=== PATIENT | male | born 1965 | race Caucasian/White ===

== ENCOUNTER 2018-11-21 04:35 | Emergency (ER) | payer MEDICAID, OTHER ==
[~2018-11-21] VITALS: Ht 175.3 cm; Wt 76.0 kg
[~2018-11-21 04:35] MED LIST: DILANTIN; LAMICTAL; MIRT30TA PO; PHEN100C4 PO; PHEN60TA PO; PHENOBARBITAL; REMERON; THIA100T13 PO; UNK MEDS
[2018-11-21] MEDS ORDERED: LORAZEPAM 2MG/ML CPJ IV STA (05:02)
[2018-11-21 05:20] VITALS: BP 130/76
[2018-11-21 05:40] LABS: HEMATOCRIT. 41.8 % (42.0-52.0); HEMOGLOBIN. 14.2 g/dL (14.0-18.0); MEAN PLATELET VOLUME 8.5 fl (7.4-10.4); PLATELET 248 x1000/uL (130-400); RED BLOOD CELL COUNT 4.31 mill/uL (4.7-6.1); RED CELL DISTRIBUTION WIDTH 16.5 % (11.6-14.6)
[2018-11-21 05:56] LABS: CHLORIDE 110 mEq/L (98-107)
[2018-11-21 06:01] LABS: ETHANOL BLOOD < 10 mg/dL
[2018-11-21 09:10] LABS: PLATELET ESTIMATE NORMAL
== END 2018-11-21 06:13 | disposition left against medical advice (07) ==
LOC: ER 04:35
DX: F10.239 Alcohol dependence with withdrawal, unspecified (principal); Y90.0 Blood alcohol level of less than 20 mg/100 ml; F20.9 Schizophrenia, unspecified; Z79.899 Other long term (current) drug therapy; Z88.8 Allergy status to other drugs, medicaments and biological substances
CPT/HCPCS: 36415; 80320; 99283; G0480

== ENCOUNTER 2018-11-28 05:29 | Emergency (ER) | payer MEDICAID ==
[~2018-11-28] VITALS: Ht 170.2 cm; Wt 64.0 kg
[2018-11-28] MEDS ORDERED: SODIUM CHLORIDE 0.9% 1000ML BAG (SEPSIS BOLUS) IV ONE (07:00)
[2018-11-28 07:58] LABS: BASOPHILS % 1.3 % (0.0-2.0); EOSINOPHILS % 1.3 % (0.0-5.0); HEMATOCRIT. 40.7 % (42.0-52.0); HEMOGLOBIN. 13.9 g/dL (14.0-18.0); LYMPHOCYTES % 38.1 % (20.0-50.0); MEAN CORPUSCULAR HEMOGLOBIN 33.3 pg (28.0-32.0); MEAN CORPUSCULAR VOLUME 97.9 fL (80.0-94.0); MEAN PLATELET VOLUME 7.9 fl (7.4-10.4); MONOCYTES % 13.3 % (2.0-8.0); PLATELET 178 x1000/uL (130-400); RED BLOOD CELL COUNT 4.16 mill/uL (4.7-6.1); RED CELL DISTRIBUTION WIDTH 16.4 % (11.6-14.6)
[2018-11-28 08:04] LABS: CHLORIDE 108 mEq/L (98-107)
[2018-11-28 08:07] LABS: ETHANOL BLOOD 238 mg/dL
[2018-11-28 08:22] LABS: PHENOBARBITAL < 2.1 ug/mL (15.0-40.0)
[2018-11-28 11:06] LABS: CLARITY URINE CLEAR (CLEAR); COLOR URINE YELLOW (YELLOW); KETONES URINE NEGATIVE (NEGATIVE); LEUKOCYTE ESTERASE URINE NEGATIVE (NEGATIVE); NITRITE URINE NEGATIVE (NEGATIVE); OCCULT BLOOD URINE NEGATIVE (NEGATIVE); PH URINE 6.5 (4.5-8.0); PROTEIN URINE NEGATIVE (NEGATIVE); SPECIFIC GRAVITY URINE 1.015 (1.005-1.030)
[2018-11-28 11:49] LABS: *BARBITURATES SCREEN URINE NEGATIVE (NEGATIVE); *BENZODIAZEPINES SCREEN URINE PRESUMTIVE POSITIVE (NEGATIVE); *COCAINE SCREEN URINE PRESUMTIVE POSITIVE (NEGATIVE)
[2018-11-28 11:51] LABS: CANNABINOID URINE SCREEN NEGATIVE (NEGATIVE); METHADONE URINE SCREEN NEGATIVE (NEGATIVE); OPIATES URINE SCREEN NEGATIVE (NEGATIVE); PHENCYCLIDINE URINE SCREEN NEGATIVE (NEGATIVE)
[2018-11-28 11:52] LABS: *AMPHETAMINES SCREEN URINE NEGATIVE (NEGATIVE)
[2018-11-28] MEDS ORDERED: IBUPROFEN 600MG TABLET PO ONE ×2 (13:00→17:15)
[2018-11-28] MEDS ORDERED: PHENYTOIN SODIUM EXTENDED 100MG CAPSULE PO ONE (22:30)
[2018-11-29] MEDS ORDERED: PHENYTOIN SODIUM EXTENDED 100MG CAPSULE PO ONE (09:00)
[2018-11-29] MEDS ORDERED: LORAZEPAM 1MG TABLET PO ONE (10:30)
[2018-11-29] MEDS ORDERED: OLANZAPINE 10 MG/VIAL IM ONE (16:15)
[2018-11-30 08:18] VITALS: BP 130/74
== END 2018-11-30 08:53 ==
LOC: ER 05:29
DX: R41.82 Altered mental status, unspecified (principal); F14.129 Cocaine abuse with intoxication, unspecified; F10.129 Alcohol abuse with intoxication, unspecified; R56.9 Unspecified convulsions; Y90.9 Presence of alcohol in blood, level not specified
CPT/HCPCS: 36415; 70450; 71045; 80053; 80184; 80185; 80305; 80320; 81003; 83735; 83880; 84484; 85025; 93005; 96360; 96361; 96372; 99285; C1893; J3490; J7030; Z7610; 99284; G0480

== ENCOUNTER 2019-06-06 20:27 | Emergency (ER) | payer MEDICAID ==
[~2019-06-06] VITALS: Ht 177.8 cm; Wt 82.0 kg
[2019-06-06] MEDS ORDERED: LORAZEPAM 2MG/ML CPJ IM STA (20:56)
[2019-06-06] MEDS ORDERED: DIPHENHYDRAMINE 50MG/ML VIAL IM STA (20:56)
[2019-06-06] MEDS ORDERED: OLANZAPINE 10 MG/VIAL IM ONE (21:00)
[2019-06-06] MEDS ORDERED: SODIUM CHLORIDE 0.9% 1,000 ML IV ONE (21:16)
[2019-06-06 22:31] LABS: BASOPHILS % 0.5 % (0.0-2.0); EOSINOPHILS % 2.8 % (0.0-5.0); HEMATOCRIT. 44.3 % (42.0-52.0); HEMOGLOBIN. 15.2 g/dL (14.0-18.0); LYMPHOCYTES % 44.1 % (20.0-50.0); MEAN CORPUSCULAR HEMOGLOBIN 32.6 pg (28.0-32.0); MEAN CORPUSCULAR VOLUME 95.1 fL (80.0-94.0); NEUTROPHILS % 38.6 % (40.0-76.0); PLATELET 212 x1000/uL (130-400); RED BLOOD CELL COUNT 4.66 mill/uL (4.7-6.1); RED CELL DISTRIBUTION WIDTH 14.3 % (11.6-14.6)
[2019-06-06 22:36] LABS: CHLORIDE 105 mEq/L (98-107)
[2019-06-06 22:40] LABS: ETHANOL BLOOD 216 mg/dL
[2019-06-06 22:44] LABS: CLARITY URINE CLEAR (CLEAR); COLOR URINE YELLOW (YELLOW); KETONES URINE NEGATIVE (NEGATIVE); LEUKOCYTE ESTERASE URINE NEGATIVE (NEGATIVE); NITRITE URINE NEGATIVE (NEGATIVE); OCCULT BLOOD URINE NEGATIVE (NEGATIVE); PROTEIN URINE NEGATIVE (NEGATIVE); SPECIFIC GRAVITY URINE 1.022 (1.005-1.030)
[2019-06-06 22:55] LABS: PHENOBARBITAL < 2.1 ug/mL (15.0-40.0)
[2019-06-06 23:00] LABS: *AMPHETAMINES SCREEN URINE NEGATIVE (NEGATIVE); *BARBITURATES SCREEN URINE NEGATIVE (NEGATIVE); *BENZODIAZEPINES SCREEN URINE PRESUMTIVE POSITIVE (NEGATIVE); *COCAINE SCREEN URINE NEGATIVE (NEGATIVE); OPIATES URINE SCREEN NEGATIVE (NEGATIVE)
[2019-06-06 23:01] LABS: CANNABINOID URINE SCREEN NEGATIVE (NEGATIVE); METHADONE URINE SCREEN NEGATIVE (NEGATIVE); PHENCYCLIDINE URINE SCREEN NEGATIVE (NEGATIVE)
[2019-06-06] MEDS ORDERED: LORAZEPAM 2MG/ML CPJ IV ONE (23:30)
[2019-06-08] MEDS ORDERED: LORAZEPAM 1MG TABLET PO ONE (10:00)
[2019-06-08 13:40] VITALS: BP 138/79
== END 2019-06-08 14:16 | disposition home or self-care (01) ==
LOC: ER 20:27
DX: R45.850 Homicidal ideations (principal); R45.851 Suicidal ideations; Z78.1 Physical restraint status; F91.8 Other conduct disorders; F33.3 Major depressive disorder, recurrent, severe with psychotic symptoms; F10.129 Alcohol abuse with intoxication, unspecified; Y90.9 Presence of alcohol in blood, level not specified; F15.10 Other stimulant abuse, uncomplicated; G40.909 Epilepsy, unspecified, not intractable, without status epilepticus
CPT/HCPCS: 36415; 80053; 80184; 80185; 80305; 80307; 80320; 80329; 81003; 85025; 96372; 96374; 99284; J1200; J2060; J3490; J7030; G0480

== ENCOUNTER 2019-06-08 20:15 | Emergency (ER) | payer MEDICAID ==
[~2019-06-08] VITALS: Ht 177.8 cm; Wt 90.0 kg
[2019-06-08] MEDS ORDERED: LEVETIRACETAM 500MG TABLET PO ONE (21:30)
[2019-06-08] MEDS ORDERED: LORAZEPAM 1MG TABLET PO ONE (21:30)
[2019-06-08 21:49] LABS: HEMATOCRIT. 45.2 % (42.0-52.0); HEMOGLOBIN. 15.7 g/dL (14.0-18.0); MEAN CORPUSCULAR HEMOGLOBIN 33.3 pg (28.0-32.0); MEAN CORPUSCULAR VOLUME 95.7 fL (80.0-94.0); MEAN PLATELET VOLUME 7.7 fl (7.4-10.4); PLATELET 231 x1000/uL (130-400); RED BLOOD CELL COUNT 4.72 mill/uL (4.7-6.1); RED CELL DISTRIBUTION WIDTH 13.8 % (11.6-14.6)
[2019-06-08 22:00] LABS: CHLORIDE 107 mEq/L (98-107)
[2019-06-08 22:06] LABS: ETHANOL BLOOD 246 mg/dL
[2019-06-08 22:09] LABS: PLATELET ESTIMATE NORMAL
[2019-06-08 22:13] LABS: CARBAMAZEPINE < 0.5 ug/mL (4-12); PHENOBARBITAL < 2.1 ug/mL (15.0-40.0); VALPROIC ACID < 3.0 ug/mL (50-100)
[2019-06-08] MEDS ORDERED: OLANZAPINE 10 MG/VIAL IM ONE (22:15)
[2019-06-08] MEDS ORDERED: LORAZEPAM 2MG/ML CPJ IM ONE (22:15)
[2019-06-09 02:15] LABS: *AMPHETAMINES SCREEN URINE NEGATIVE (NEGATIVE); *BARBITURATES SCREEN URINE NEGATIVE (NEGATIVE); *BENZODIAZEPINES SCREEN URINE PRESUMTIVE POSITIVE (NEGATIVE); *COCAINE SCREEN URINE NEGATIVE (NEGATIVE); METHADONE URINE SCREEN NEGATIVE (NEGATIVE); OPIATES URINE SCREEN NEGATIVE (NEGATIVE)
[2019-06-09 02:16] LABS: CANNABINOID URINE SCREEN NEGATIVE (NEGATIVE); PHENCYCLIDINE URINE SCREEN NEGATIVE (NEGATIVE)
[2019-06-09 09:30] VITALS: BP 134/81
== END 2019-06-09 09:43 | disposition home or self-care (01) ==
LOC: ER 20:15
DX: G40.909 Epilepsy, unspecified, not intractable, without status epilepticus (principal); R03.0 Elevated blood-pressure reading, without diagnosis of hypertension; R53.83 Other fatigue; F10.229 Alcohol dependence with intoxication, unspecified; Y90.8 Blood alcohol level of 240 mg/100 ml or more; Z78.1 Physical restraint status; Z59.0 Homelessness; F14.10 Cocaine abuse, uncomplicated
CPT/HCPCS: 36415; 80053; 80156; 80165; 80184; 80185; 80305; 80307; 80320; 80329; 84443; 85025; 96372; 99285; J2060; J3490; G0480

== ENCOUNTER 2020-03-06 16:55 | Emergency (ER) | payer MEDICAID ==
[~2020-03-06] VITALS: Ht 175.3 cm; Wt 70.0 kg
[2020-03-06 17:11] VITALS: BP 114/79
[2020-03-06] MEDS ORDERED: LEVETIRACETAM 1000MG PREMIX 100 ML IV ONE (17:45)
[2020-03-06 19:06] LABS: BASOPHILS % 0.7 % (0.0-2.0); EOSINOPHILS % 1.7 % (0.0-5.0); HEMOGLOBIN. 16.5 g/dL (14.0-18.0); LYMPHOCYTES % 31.5 % (20.0-50.0); MEAN CORPUSCULAR HEMOGLOBIN 30.7 pg (28.0-32.0); MEAN CORPUSCULAR VOLUME 91.3 fL (80.0-94.0); MEAN PLATELET VOLUME 7.9 fl (7.4-10.4); MONOCYTES % 11.5 % (2.0-8.0); NEUTROPHILS % 54.6 % (40.0-76.0); PLATELET 209 x1000/uL (130-400); RED BLOOD CELL COUNT 5.37 mill/uL (4.7-6.1); RED CELL DISTRIBUTION WIDTH 13.3 % (11.6-14.6)
[2020-03-06 19:11] LABS: CHLORIDE 107 mEq/L (98-107)
[2020-03-06 19:18] LABS: ETHANOL BLOOD 19 mg/dL
== END 2020-03-06 19:05 | disposition left against medical advice (07) ==
LOC: ER 16:55
DX: R56.9 Unspecified convulsions (principal); F10.129 Alcohol abuse with intoxication, unspecified; Y90.0 Blood alcohol level of less than 20 mg/100 ml; Z91.14 Patient's other noncompliance with medication regimen; Z79.899 Other long term (current) drug therapy; Z88.8 Allergy status to other drugs, medicaments and biological substances
CPT/HCPCS: 36415; 80053; 80185; 80307; 80320; 85025; 99284; G0480

== ENCOUNTER → 2020-03-06 20:05 | Emergency (ER) | payer MEDICAID ==
[~2020-03-06] VITALS: Ht 182.9 cm; Wt 78.0 kg
[~2020-03-06 20:05] MED LIST changes: +MIRT-111 PO; -MIRT30TA PO; +ONDANSETRON 4MG ODT PO ONE
[2020-03-06 20:10] VITALS: BP 126/94
== END | disposition home or self-care (01) ==
LOC: ER 20:05
DX: M25.551 Pain in right hip (principal); G89.29 Other chronic pain; F10.129 Alcohol abuse with intoxication, unspecified; Y90.0 Blood alcohol level of less than 20 mg/100 ml; F32.9 Major depressive disorder, single episode, unspecified; Z79.899 Other long term (current) drug therapy; Z88.8 Allergy status to other drugs, medicaments and biological substances
CPT/HCPCS: 93005; 99283; Q0162

== ENCOUNTER 2020-04-05 14:59 | Emergency (ER) | payer MEDICAID ==
[~2020-04-05] VITALS: Ht 182.9 cm; Wt 82.0 kg
[~2020-04-05 14:59] MED LIST changes: -ONDANSETRON 4MG ODT PO ONE
[2020-04-05] MEDS ORDERED: SODIUM CHLORIDE 0.9% 1,000 ML IV ONE (15:30)
[2020-04-05 15:58] LABS: BASOPHILS % 0.7 % (0.0-2.0); EOSINOPHILS % 1.3 % (0.0-5.0); HEMATOCRIT. 42.6 % (42.0-52.0); HEMOGLOBIN. 14.6 g/dL (14.0-18.0); LYMPHOCYTES % 21.5 % (20.0-50.0); MEAN CORPUSCULAR HEMOGLOBIN 30.1 pg (28.0-32.0); MEAN CORPUSCULAR VOLUME 87.8 fL (80.0-94.0); MEAN PLATELET VOLUME 7.7 fl (7.4-10.4); MONOCYTES % 10.6 % (2.0-8.0); NEUTROPHILS % 65.9 % (40.0-76.0); PLATELET 208 x1000/uL (130-400); RED BLOOD CELL COUNT 4.86 mill/uL (4.7-6.1); RED CELL DISTRIBUTION WIDTH 13.5 % (11.6-14.6)
[2020-04-05 16:03] LABS: CHLORIDE 106 mEq/L (98-107)
[2020-04-05 16:08] LABS: ETHANOL BLOOD < 10 mg/dL
[2020-04-05 16:11] LABS: PHENOBARBITAL 2.5 ug/mL (15.0-40.0)
[2020-04-05 16:17] LABS: VALPROIC ACID < 3.0 ug/mL (50-100)
[2020-04-05 16:19] LABS: CARBAMAZEPINE < 0.5 ug/mL (4-12)
[2020-04-05 16:24] LABS: *AMPHETAMINES SCREEN URINE NEGATIVE (NEGATIVE); *BARBITURATES SCREEN URINE NEGATIVE (NEGATIVE); *BENZODIAZEPINES SCREEN URINE PRESUMTIVE POSITIVE (NEGATIVE); *COCAINE SCREEN URINE NEGATIVE (NEGATIVE); METHADONE URINE SCREEN NEGATIVE (NEGATIVE)
[2020-04-05 16:25] LABS: CANNABINOID URINE SCREEN NEGATIVE (NEGATIVE)
[2020-04-05] MEDS ORDERED: LEVETIRACETAM 500MG PREMIX 100 ML IV ONE (16:45)
[2020-04-05 16:56] LABS: OPIATES URINE SCREEN NEGATIVE (NEGATIVE); PHENCYCLIDINE URINE SCREEN NEGATIVE (NEGATIVE)
[2020-04-05] MEDS ORDERED: MORPHINE SULFATE 4 MG/ML CPJ (NOT FOR IM USE) IV ONE (18:45)
[2020-04-06 09:15] VITALS: BP 105/58
[2020-04-08] MEDS ORDERED: GABA300S PO (23:59)
[2020-04-09] MEDS ORDERED: LEVE500T19 PO (00:18)
[2020-04-09] MEDS ORDERED: TRAZ-251 PO (00:19)
[2020-04-09] MEDS ORDERED: MIRT-91 PO (00:19)
[2020-04-09] MEDS ORDERED: FOLI-43 MT (00:20)
[2020-04-09] MEDS ORDERED: [UNRECOGNIZED DRUG - CODE] PO (00:20)
[2020-04-09] MEDS ORDERED: ARIP15TA7 MT (00:21)
[2020-04-09] MEDS ORDERED: KEPP500 PO (17:03)
[2020-04-09] MEDS ORDERED: CLOP75TA15 PO (17:03)
[2020-04-09] MEDS ORDERED: LEVO50TA8 PO (17:03)
== END 2020-04-06 10:59 | disposition home or self-care (01) ==
LOC: ER 14:59
DX: R56.9 Unspecified convulsions (principal); Z85.9 Personal history of malignant neoplasm, unspecified; F32.9 Major depressive disorder, single episode, unspecified; Z79.899 Other long term (current) drug therapy; Z88.0 Allergy status to penicillin
CPT/HCPCS: 36415; 72170; 80053; 80156; 80165; 80184; 80185; 80305; 80320; 82962; 85025; 93005; 96361; 96365; 96375; 99285; J1953; J2270; J7030; Z7610; G0480

== ENCOUNTER 2021-01-26 02:50 | Emergency (ER) | payer MEDICAID ==
[~2021-01-26] VITALS: Ht 172.7 cm; Wt 69.0 kg
[~2021-01-26 02:50] MED LIST changes: +ARIP15TA14 MT; +CLOP75TA15 PO; +FOLI-43 MT; +GABA300S PO; +KEPP500 PO; +LEVE500T19 PO; +LEVO50TA8 PO; +MIRT-90 PO; +OLAN7.5T18 PO; +TRAZ-251 PO
[2021-01-26] MEDS ORDERED: SODIUM CHLORIDE 0.9% 1,000 ML IV ONE (03:00)
[2021-01-26] MEDS ORDERED: LEVETIRACETAM 1000MG PREMIX 100 ML IV ONE (04:00)
[2021-01-26] MEDS ORDERED: LEVETIRACETAM 1,000 MG in SODIUM CHLORIDE 0.9% 100 ML IV SCH (04:00)
[2021-01-26 04:08] LABS: BASOPHILS % 0.5 % (0.0-2.0); EOSINOPHILS % 1.5 % (0.0-5.0); HEMATOCRIT. 49.7 % (42.0-52.0); HEMOGLOBIN. 16.7 g/dL (14.0-18.0); LYMPHOCYTES % 29.4 % (20.0-50.0); MEAN CORPUSCULAR HEMOGLOBIN 32.1 pg (28.0-32.0); MEAN CORPUSCULAR VOLUME 95.3 fL (80.0-94.0); MEAN PLATELET VOLUME 7.8 fl (7.4-10.4); MONOCYTES % 10.8 % (2.0-8.0); NEUTROPHILS % 57.8 % (40.0-76.0); PLATELET 197 x1000/uL (130-400); RED BLOOD CELL COUNT 5.22 mill/uL (4.7-6.1); RED CELL DISTRIBUTION WIDTH 13.8 % (11.6-14.6)
[2021-01-26 04:12] LABS: CHLORIDE 108 mEq/L (98-107)
[2021-01-26 04:16] LABS: ETHANOL BLOOD 153 mg/dL
[2021-01-26] MEDS ORDERED: KEPP500 MT ×2 (05:43→12:16)
[2021-01-26] MEDS ORDERED: ONDA4TAB5 MT (05:43)
[2021-01-26 06:09] VITALS: BP 126/71
[2021-01-26 09:07] LABS: CLARITY URINE CLEAR (CLEAR); COLOR URINE YELLOW (YELLOW); KETONES URINE NEGATIVE (NEGATIVE); LEUKOCYTE ESTERASE URINE NEGATIVE (NEGATIVE); NITRITE URINE NEGATIVE (NEGATIVE); OCCULT BLOOD URINE NEGATIVE (NEGATIVE); PH URINE 5.5 (4.5-8.0); PROTEIN URINE NEGATIVE (NEGATIVE); SPECIFIC GRAVITY URINE 1.017 (1.005-1.030); UROBILINOGEN URINE 0.2 E.U./dL (0.2-1.0)
[2021-01-26 09:24] LABS: *AMPHETAMINES SCREEN URINE PRESUMTIVE POSITIVE (NEGATIVE); *BARBITURATES SCREEN URINE NEGATIVE (NEGATIVE)
[2021-01-26 09:25] LABS: *BENZODIAZEPINES SCREEN URINE PRESUMTIVE POSITIVE (NEGATIVE); *COCAINE SCREEN URINE NEGATIVE (NEGATIVE); CANNABINOID URINE SCREEN PRESUMTIVE POSITIVE (NEGATIVE); METHADONE URINE SCREEN NEGATIVE (NEGATIVE); OPIATES URINE SCREEN NEGATIVE (NEGATIVE); PHENCYCLIDINE URINE SCREEN NEGATIVE (NEGATIVE)
== END 2021-01-26 06:10 | disposition home or self-care (01) ==
LOC: ER 02:50
DX: G40.909 Epilepsy, unspecified, not intractable, without status epilepticus (principal); Z91.14 Patient's other noncompliance with medication regimen; R94.31 Abnormal electrocardiogram [ECG] [EKG]
CPT/HCPCS: 36415; 80053; 80305; 80320; 81003; 85025; 93005; 96365; 99284; J1953; J7030; J7050; G0480

== ENCOUNTER 2021-01-26 06:59 | Emergency (ER) | payer MEDICAID ==
[~2021-01-26] VITALS: Ht 172.7 cm; Wt 69.0 kg
[~2021-01-26 06:59] MED LIST changes: +KEPP500 MT; +ONDA4TAB5 MT
[2021-01-26 07:10] VITALS: BP 109/80
[2021-01-26] MEDS ORDERED: LORAZEPAM 2MG/ML CPJ IV ONE (07:15)
[2021-01-26] MEDS ORDERED: SODIUM CHLORIDE 0.9% 1,000 ML IV ONE (07:15)
[2021-01-26] MEDS ORDERED: FOLIC ACID 1 MG, THIAMINE HCL 100 MG, MVI, ADULT NO.1 10 ML in DEXTROSE 5% WATER 1,000 ML IV ONE (07:15)
[2021-01-26 09:19] LABS: BASOPHILS % 0.6 % (0.0-2.0); EOSINOPHILS % 1.9 % (0.0-5.0); HEMATOCRIT. 41.7 % (42.0-52.0); HEMOGLOBIN. 14.3 g/dL (14.0-18.0); LYMPHOCYTES % 33.8 % (20.0-50.0); MEAN CORPUSCULAR HEMOGLOBIN 31.9 pg (28.0-32.0); MEAN CORPUSCULAR VOLUME 93.3 fL (80.0-94.0); MEAN PLATELET VOLUME 7.4 fl (7.4-10.4); NEUTROPHILS % 52.7 % (40.0-76.0); PLATELET 181 x1000/uL (130-400); RED BLOOD CELL COUNT 4.47 mill/uL (4.7-6.1); RED CELL DISTRIBUTION WIDTH 13.3 % (11.6-14.6)
[2021-01-26 09:25] LABS: CHLORIDE 109 mEq/L (98-107)
[2021-01-26 09:29] LABS: ETHANOL BLOOD 53 mg/dL
[2021-01-26] MEDS ORDERED: KEPP500 MT (12:16)
[2021-01-26] MEDS ORDERED: CHLORDIAZEPOXIDE 25MG CAPSULE PO ONE (12:30)
== END 2021-01-26 12:31 | disposition home or self-care (01) ==
LOC: ER 07:19
DX: G40.909 Epilepsy, unspecified, not intractable, without status epilepticus (principal); F10.129 Alcohol abuse with intoxication, unspecified; Y90.2 Blood alcohol level of 40-59 mg/100 ml
CPT/HCPCS: 36415; 80053; 80320; 85025; 96361; 96374; 99291; J2060; J3411; J3490; J7030; J7070; G0480

== ENCOUNTER 2021-02-04 18:36 | Emergency (ER) | payer MEDICAID ==
[~2021-02-04] VITALS: Ht 175.3 cm; Wt 82.0 kg
[2021-02-04 18:38] VITALS: BP 136/80
== END 2021-02-04 19:17 | disposition left against medical advice (07) ==
LOC: ER 18:36
DX: G40.909 Epilepsy, unspecified, not intractable, without status epilepticus (principal); R94.31 Abnormal electrocardiogram [ECG] [EKG]; Z91.14 Patient's other noncompliance with medication regimen; Z76.0 Encounter for issue of repeat prescription; F25.0 Schizoaffective disorder, bipolar type
CPT/HCPCS: 93005; 99283

== ENCOUNTER 2021-02-04 19:59 | Emergency (ER) | payer MEDICAID ==
[~2021-02-04] VITALS: Ht 185.4 cm; Wt 91.0 kg
[2021-02-04] MEDS ORDERED: LEVETIRACETAM 500MG PREMIX 100 ML IV ONE (22:30)
[2021-02-05 00:31] LABS: BASOPHILS % 0.4 % (0.0-2.0); EOSINOPHILS % 2.8 % (0.0-5.0); HEMATOCRIT. 43.1 % (42.0-52.0); HEMOGLOBIN. 14.3 g/dL (14.0-18.0); LYMPHOCYTES % 43.1 % (20.0-50.0); MEAN CORPUSCULAR HEMOGLOBIN 31.9 pg (28.0-32.0); MEAN PLATELET VOLUME 7.6 fl (7.4-10.4); MONOCYTES % 10.7 % (2.0-8.0); PLATELET 234 x1000/uL (130-400); RED BLOOD CELL COUNT 4.49 mill/uL (4.7-6.1); RED CELL DISTRIBUTION WIDTH 13.6 % (11.6-14.6)
[2021-02-05 00:39] LABS: CHLORIDE 108 mEq/L (98-107)
[2021-02-05 00:48] LABS: ETHANOL BLOOD 130 mg/dL
[2021-02-05 03:53] LABS: *AMPHETAMINES SCREEN URINE NEGATIVE (NEGATIVE); *BARBITURATES SCREEN URINE NEGATIVE (NEGATIVE); *BENZODIAZEPINES SCREEN URINE PRESUMTIVE POSITIVE (NEGATIVE); *COCAINE SCREEN URINE NEGATIVE (NEGATIVE)
[2021-02-05 03:55] LABS: CANNABINOID URINE SCREEN PRESUMTIVE POSITIVE (NEGATIVE); METHADONE URINE SCREEN NEGATIVE (NEGATIVE); OPIATES URINE SCREEN NEGATIVE (NEGATIVE); PHENCYCLIDINE URINE SCREEN NEGATIVE (NEGATIVE)
[2021-02-05] MEDS ORDERED: ARIPIPRAZOLE 5MG TABLET PO SCH (10:15)
[2021-02-05 18:30] VITALS: BP 137/82
[2021-02-05] MEDS ORDERED: MIRTAZAPINE 30MG TABLET PO SCH (21:00)
[2021-02-05] MEDS ORDERED: TRAZODONE HCL 50MG TABLET PO SCH (21:00)
== END 2021-02-05 18:59 ==
LOC: ER 19:59
DX: F33.2 Major depressive disorder, recurrent severe without psychotic features (principal); R45.851 Suicidal ideations; G40.909 Epilepsy, unspecified, not intractable, without status epilepticus; Z20.822 Contact with and (suspected) exposure to COVID-19; F15.10 Other stimulant abuse, uncomplicated; F13.10 Sedative, hypnotic or anxiolytic abuse, uncomplicated; F10.10 Alcohol abuse, uncomplicated; Y90.6 Blood alcohol level of 120-199 mg/100 ml; F12.90 Cannabis use, unspecified, uncomplicated; Z91.51 Personal history of suicidal behavior
CPT/HCPCS: 36415; 80053; 80305; 80307; 80320; 80329; 85025; 93005; 99285; C9803; U0003; U0005; G0480